=== PATIENT | female | born 2005 | race Two or more races ===

== ENCOUNTER 2024-12-02 21:53 | Emergency (ER) | payer MEDICAID, SELFPAY ==
[2024-12-02 21:53] VITALS: BMI 23.6
[2024-12-02 22:34] VITALS: BP 124/72; PULSE 92; RESP 18; TEMP 37.2; O2SAT 98
[2024-12-02 23:24] LABS: Collection Type, Urine Clean Catch
[2024-12-02 23:27] LABS: Basophils # (Auto) 0.0 Thou/mm3 (0.0-0.2); Basophils % (Auto) 1 % (0-2.5); Eosinophils # (Auto) 0.0 Thou/mm3 (0.0-0.5); Eosinophils % (Auto) 1 % (0-10); Hematocrit 31.8 % (36.0-46.0); Hemoglobin 10.0 g/dL (12.0-16.0); Immature Granulocytes Auto 0.01 Thou/mm3 (0.00-0.00); Lymphocytes # (Auto) 2.2 Thou/mm3 (1.0-4.8); Lymphocytes % (Auto) 43 % (10-50); Mean Corpuscular HGB Conc 31.4 g/dl (31.0-37.0); Mean Corpuscular Hemoglobin 25.7 pg (25.0-35.0); Mean Corpuscular Volume 82 fL (80-100); Monocytes # (Auto) 0.4 Thou/mm3 (0.0-0.8); Monocytes % (Auto) 9 % (0-12); Neutrophils # (Auto) 2.4 Thou/mm3 (1.8-7.7); Neutrophils % (Auto) 47 % (37-80); Nucleated Red Blood Cell # 0.00 Thou/mm3 (0.00-0.00); Nucleated Red Blood Cell % 0 /100 WBC (0); Platelet Count 236 Thou/mm3 (140-440); RDW Standard Deviation 49.3 fL (36.4-46.3); Red Blood Count 3.89 Miln/mm3 (4.00-5.20); White Blood Count 5.0 Thou/mm3 (3.6-11.0)
[2024-12-02 23:42] LABS: Amorphous Crystals,Urine Present (Absent); Bilirubin,Urine Negative (Negative); Blood,Urine 3+ (Negative); Glucose, Urine Negative (Negative); Ketones,Urine Negative (Negative); Leukocyte Esterase,Urine Negative (Negative); Nitrite,Urine Negative (Negative); PH,Urine 8.0 (5.0-7.0); Protein,Urine Trace (Neg - Trace); RBC,Urine 1280 /hpf (0-3); Specific Gravity,Urine 1.022 (1.001-1.035); Squamous Epithelial Cell,Urine 3 /hpf (0-5); Urobilinogen,Urine Negative mg/dL (0.0-1.0); WBC,Urine 1 /hpf (0-5)
[2024-12-02 23:43] LABS: Color,Urine Amber (Lt Yel-Yel)
[2024-12-02 23:44] LABS: Clarity,Urine Cloudy (Clear/Hazy)
[2024-12-02 23:47] LABS: HCG Qualitative,Urine Negative
[2024-12-02 23:53] LABS: Alanine Aminotransferase 36 U/L (10-49); Albumin, Serum 4.4 gm/dL (3.5-5.0); Albumin/Globulin Ratio 1.8 (1.2-2.2); Alkaline Phosphatase 81 U/L (46-116); Anion Gap 8 (7-16); Aspartate Amino Transferase 36 U/L (0-34); BUN/Creatinine Ratio 15 Ratio (12-20); Bilirubin,Total 0.6 mg/dL (0.3-1.2); Blood Urea Nitrogen 9 mg/dL (9-23); Calcium 9.7 mg/dL (8.3-10.6); Calcium (Corrected) 9.7 mg/dL (8.5-10.1); Carbon Dioxide 27.0 mMol/L (20.0-31.0); Chloride 108 mMol/L (98-107); Creatinine (Component) 0.6 mg/dL (0.6-1.3); Estimated Creatinine Clearance 111.9 mL/min (>60); Globulin 2.5 gm/dL (2.3-3.5); Glucose 90 mg/dL (74-106); Lipase 56 U/L (12-53); Osmolality,Calculated 283 (275-295); Potassium 3.8 mMol/L (3.4-5.1); Sodium 143 mMol/L (136-145); Total Protein 6.9 gm/dL (5.7-8.2); eGFR > 60 See Note
--- NOTE | 2024-12-03 01:42 | PD.EDRME ---
Rapid Medical Screening Exam RME Arrival date/time: 12/02/24 21:53 This is a case of 19-year-old female who came into the emergency room due to abdominal pain on and off for 1 week radiating to both flanks with painful urination and dark urine and worsening of the symptoms this patient decided to start consult here in the emergency room Chief Complaint: Urogenital-Female Time Seen by Provider: 12/02/24 22:35 Vital signs: Vital Signs Temperature 98.9 F 12/02/24 22:34 Pulse Rate 92 12/02/24 22:34 Respiratory Rate 18 12/02/24 22:34 Blood Pressure 124/72 12/02/24 22:34 Pulse Oximetry (%) 98 12/02/24 22:34 Oxygen Delivery Method Room Air 12/02/24 22:34
== END 2024-12-03 01:47 | disposition left against medical advice (07) ==
LOC: SERX 22:55
PROVIDERS: Nurse Practitioner Family; Emergency Provider Emergency Medicine
DX: R10.9 Unspecified abdominal pain (principal); R30.9 Painful micturition, unspecified
CPT/HCPCS: 36415; 80053; 81001; 81025; 83690; 85025; 99284